=== PATIENT | male | born 1960 | race Caucasian/White ===

== ENCOUNTER → 2019-02-23 | Outpatient (CLI) | payer BC ==
--- NOTE | 2019-02-23 09:18 | Diagnostic Imaging Report ---
PROCEDURE: CT abdomen without contrast. TECHNIQUE: Multiple contiguous axial images were obtained through the abdomen without the use of intravenous contrast. Auto Exposure Controls were utilized during the CT exam to meet ALARA standards for radiation dose reduction. INDICATION: Left upper quadrant pain. The study is performed to evaluate for abdominal wall hernia. No prior studies are available for comparison. The lung bases are clear. There appears to be generalized low-density throughout the liver suggestive of hepatic steatosis. No discrete mass is identified. The gallbladder is unremarkable. No biliary duct dilatation is seen. Pancreas and spleen are unremarkable. No adrenal mass is identified. No definite renal calculi or hydronephrosis is detected. The aorta is non-aneurysmal. The visualized bowel loops are normal caliber. No obstruction is seen. No free fluid or loculated fluid collection is identified. No definite abdominal wall defect or hernia seen. There is some nonspecific stranding in the left para midline abdominal wall fat at the level of the umbilicus. No abdominal wall fluid collection is seen. Bony structures are unremarkable. IMPRESSION: Essentially unremarkable noncontrast CT of the abdomen with the exception of mild stranding in the left paraumbilical subcutaneous fat. No abdominal wall defect or hernia is detected. Dictated by: Dictated on workstation # [id number]
== END ==
LOC: RAD FS 08:31
PROVIDERS: ATTEND Family Medicine
DX: R19.02 Left upper quadrant abdominal swelling, mass and lump (principal)
CPT/HCPCS: 74150